=== PATIENT | male | born 1990 | race Caucasian/White ===

== ENCOUNTER 2017-12-04 19:32 | Emergency (ER) | payer BC, OTHER ==
[~2017-12-04] VITALS: Ht 177.8 cm; Wt 102.1 kg
[2017-12-04 20:41] VITALS: BP 150/95
== END 2017-12-04 20:44 | disposition home or self-care (01) ==
LOC: ER 19:38
DX: L51.9 Erythema multiforme, unspecified (principal); R21 Rash and other nonspecific skin eruption
CPT/HCPCS: A4606; Z7610